=== PATIENT | female | born 1990 | race Caucasian/White ===

== ENCOUNTER 2021-12-19 08:44 | Outpatient (REF) | payer OTHER, SELFPAY ==
[2021-12-19 11:17] LABS: MANUAL DIFF FLAG NO
[2021-12-19 11:32] LABS: Basophils Percent Auto 0.6 % (0-2); Eosinophils Absolute Auto 0.5 X10*3/uL (0.0-0.4); Eosinophils Percent Auto 7.8 % (0-4); Hemoglobin 14.3 g/dl (12.0-16.0); Imm Gran Abs Auto 0.02 X10*3/uL (0.00-0.03); Imm Gran Pct Auto 0.3 % (0.0-0.4); Lymphocytes Absolute Auto 2.1 X10*3/uL (1.2-4.9); Lymphocytes Percent Auto 31.5 % (20-40); Mean Corpuscular Hemoglobin 31.4 pg (27.0-33.0); Mean Corpuscular Volume 92.1 fL (80.0-98.0); Mean Platelet Volume 11.1 fL (9.4-12.3); Monocytes Absolute Auto 0.2 X10*3/uL (0.1-1.2); Monocytes Percent Auto 3.4 % (2-11); Neutrophils Absolute Auto 3.7 x10*3/uL (2.0-8.3); Neutrophils Percent Auto 56.4 % (45-73); Platelet Count 302 X10*3/uL (160-400); Red Blood Count 4.56 X10*6/uL (4.20-5.50); Red Cell Distribution Width 12.4 % (11.0-16.0); White Blood Count 6.5 X10*3/uL (4.8-10.8)
[2021-12-19 12:17] LABS: Alanine Aminotransferase 10 U/L (0-31); Albumin Level 4.4 g/dL (3.5-5.0); Alkaline Phosphatase 53 U/L (39-117); Anion Gap 17 (12-20); Aspartate Amino Transferase 18 U/L (5-31); Bilirubin Total 0.7 mg/dL (0.0-1.0); Blood Urea Nitrogen 12 mg/dL (9-16); Calcium 9.3 mg/dL (8.4-10.2); Carbon Dioxide 19 mmol/L (22-29); Chloride 108 mmol/L (96-108); Cholesterol 147 mg/dL; Estimated Glomerular Filt Rate > 60; Glucose Fasting 82 mg/dL (60-99); HDL Cholesterol 40 mg/dL; LDL Cholesterol Calculated 95 mg/dl; Potassium 4.6 mmol/L (3.3-5.1); Sodium 139 mmol/L (135-145); Total Protein 7.2 g/dL (6.5-8.0); Triglycerides 60 mg/dL
[2021-12-19 12:34] LABS: TSH reflex Free T4 1.08 uIU/mL (0.32-4.0)
== END 2021-12-19 08:45 | disposition home or self-care (01) ==
LOC: HO.WFDLDS 08:44
PROVIDERS: Visit Provider Family Medicine
DX: Z00.00 Encounter for general adult medical examination without abnormal findings (principal)
CPT/HCPCS: 36415; 80053; 80061; 84443; 85025

== ENCOUNTER 2023-05-14 11:58 | Outpatient (AMB) | payer BC, SELFPAY ==
--- NOTE | 2023-05-14 12:05 | MHC.PC.OV ---
Vital Signs 05/14/23 12:09 Height 5 ft 3 in Weight 151 lb BMI 26.7 BP 110/60 Blood Pressure Location Rt brachial Position Sitting Respiration 13 Pulse 88 Pulse Source Pulse Oximeter Temp 98.2 F Temp Source Temporal Artery Scan Pulse Oximetry (%) 100 Oxygen Delivery Method Room Air Intake Visit Reasons: CPE Intake Note: Patient is here for her yearly physical. Patient reports she has been having difficulties with her breathing related to asthma. Patient needs refills on her medications. Patient reports she is about 8-9 weeks. 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 Accompanied by: Self / Same As Patient Allergies amoxicillin Allergy (Verified 05/14/23 12:24) breathing difficulty, rash Medication List - Last Reconciled 05/14/23 by Sydnee Varela, [facility]- albuterol sulfate 0.63 mg inhalation Q4-6H PRN albuterol sulfate 90 mcg/actuation 2 puffs inhalation Q4-6H PRN fluticasone propion-salmeterol 100-50 mcg/dose (Advair Diskus) 1 inh inhalation BID Tobacco use date assessed: 05/14/23 Dental Screening Dental Screen Date: 05/14/23 Did you have a dental visit in the last 12 months?: No Did you have a dental problem in the last 6 months where you did not have access to dental care?: No Was dental information given to patient?: Patient has dentist HPI HPI Comments History of Present Illness Details 32-year-old female with anxiety disorder, moderate persistent asthma, seasonal allergies, insomnia, ectopic , liver hemangioma surgery: L 10/2021 L fallopian removed s/p ectopic preg. Family hx: Mom and Dad alive and well. Siblings older bro, younger sister alive and well. 3 children alive well. MGM - alive KULWINDER, MD MGF - stroke in the setting of etoh,age 50 PGM - alive, DM, Arthritis, Asthma PGF - alive and well unknown medical hx Great grandmother Maternal - breast cancer. No sig family hx in first degree relatives. Social: works at [employer]. 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 Last labs 11/2021 Here today for a CPE Quit Vaping. Asthma - uncontrolled. Waking from sleep. Will get flu shot today. Several ED visits for her asthma. Not active w/ Pulm. Interested. + seasonal allergies; using Zyrtec. Currently . Anxiety - not active w/ psych. Stopped taking meds as it was not working. Called for referral for counseling; wait list > 1 year and other didnt take insurance. Incidental finding of liver hemangioma on ED imaging. No f/u on hemangioma to date. Would like to defer until after current . [facility] Medical History (Updated 05/14/23 @ 15:56 by Sydnee Varela, [facility]) Encounter for prophylactic removal of fallopian tube Asthma Family History Mother No problems noted. Father No problems noted. Maternal Grandfather Substance abuse Social History (Updated 05/14/23 @ 12:20 by Jolene Cerda [facility]) Household Members: Children Household Members Other:: 3 children Housing: House (2 family house) Are you a primary care management specialist to a significant other at home: No Do you presently have visiting nurse or other home services: No 75 years or older and lives alone: No Alcohol intake: former Year quit: 2023 Comment: Patient is Patient Tobacco Use Status: Never used Tobacco (vaping) e-Cigarette/Vaping Use: Former Use (about 2 years, quit 2 months ago) Date or number of years quit: February 2023 service: No Current occupational status: employed Current occupation: [employer] Current occupational exposures/hazards: No Sexual orientation: Straight/Heterosexual Gender identity: Female Cognitive needs: No Hearing needs: No Vision needs: No Questionnaire PHQ-9 Over the last 2 weeks, how often have you been bothered by any of the following problems? 1. Little interest or pleasure in doing things: not at all 2. Feeling down, depressed, or hopeless: not at all 3. Trouble falling or staying asleep, or sleeping too much: not at all 4. Feeling tired or having little energy: not at all 5. Poor appetite or overeating: not at all 6. Feeling bad about yourself - or that you are a failure or have let yourself or your family down: not at all 7. Trouble concentrating on things, such as reading the newspaper or watching television: not at all 8. Moving or speaking so slowly that other people could have noticed. Or the opposite - being so fidgety or restless that you have been moving around a lot more than usual: not at all 9. Thoughts that you would be better off or of hurting yourself in some way: not at all Total score: 0 Depression Screening Interpretation: Negative Depression Screening Done: Yes [id number] - PHQ-9 Billing: Yes Source: Developed by Drs. Yevgeniy Badillo, Yuki Cruz, Dejuan Bustamante and colleagues, with an educational joel from [employer]. Thrive Questionnaire Date Thrive assessed: 05/14/23 I am a: Patient What is your living situation today?: I have a steady place to live Within the past 12 months, did the food you bought not last and you didn't have the money to get more?: Never true Within the past 12 months, did you worry whether your food would run out before you got money to buy more?: Never true Do you have trouble paying for medicines?: No Do you have trouble getting transportation to medical appointments?: No Do you have trouble paying your heating and electricity bill?: No Do you have trouble taking care of your child, family member or friend?: No Do you have trouble with day-to-day activities such as bathing, preparing meals, shopping, managing finances, etc.?: No Are you currently unemployed and looking for a job?: No Are you interested in more education?: No Please select the resources that you would like help with: None Currently or been in a relationship where the following occur: no concerns reported THRIVE Score: 0 AUDIT C Alcohol Use Questionnaire (AUDIT-C) 1. How often do you have a drink containing alcohol?: Never 3. How often do you have six or more drinks on one occasion?: Never Total Score: 0 Score Reviewed/Action Taken: Yes KULWINDER-7 AMB Questionnaire KULWINDER-7 Date KULWINDER - 7 assessed: 05/14/23 Feeling nervous, anxious, or on edge: 0 = Not at all Not being able to stop or control worryin = Not at all Worrying too much about different things: 0 = Not at all Trouble relaxin = Not at all Being so restless that it is hard to sit still: 0 = Not at all Becoming easily annoyed or irritable: 0 = Not at all Feeling afraid as if something awful might happen: 0 = Not at all Total KULWINDER-7 score (0-4 normal; 5-9 mild; 10-14 moderate; 15-21 severe): 0 Source: Developed by Drs. Yevgeniy Badillo, Yuki Cruz, Dejuan Bustamante and colleagues, with an educational joel from [employer]. KULWINDER-7 Assessment Billing KULWINDER-7 Assessment Tool: KULWINDER-7 Assessment 48422 ACT Questionnaire In the past 4 weeks, how much of the time did your asthma keep you from getting as much done at work, school or at home?: Some of the time During the past 4 weeks, how often have you had shortness of breath?: More than once a day During the past 4 weeks, how often did your asthma symptoms wake you up at night or earlier than usual in the morning?: Once or twice per week During the past 4 weeks, how often have you had to use your rescue inhaler or nebulizer medication?: More than 3 times per day How would you rate your asthma control during the past 4 weeks?: Somewhat controlled ACT Interpretation: Positive Score: 12 Review of Systems Const Details: Constitutional: Denies fever. Skin: Denies rash. Eye: Denies eye pain. ENMT: Denies sore throat Gastrointestinal: Denies nausea, vomiting or abdominal pain. Cardiovascular: Denies chest pain and syncope. Genitourinary: Denies dysuria. Musculoskeletal: Denies back pain and extremity pain. Neurologic: Denies headaches, confusion, and weakness. Psychiatric: Denies suicidal thoughts and substance abuse. Allergy/ Immunologic: Denies impaired immunity. Physical exam (Primary Care) Vital Signs: Last Vital Signs Temp 98.2 F 05/14/23 12:09 Pulse 88 05/14/23 12:09 Resp 13 05/14/23 12:09 BP 110/60 05/14/23 12:09 Pulse Ox 100 05/14/23 12:09 Oxygen Delivery Method Room Air 05/14/23 12:09 BMI result Body Mass Index 26.7 Tobacco/Smoking Status: Tobacco use Status Tobacco use date assessed 05/14/23 05/14/23 12:17 Patient Tobacco Use Status Never used Tobacco (vaping) 05/14/23 12:20 Tobacco use type 05/14/23 12:17 e-Cigarette/Vaping Use Former Use (about 2 years, 05/14/23 12:20 quit 2 months ago) PHQ-9: PHQ-9 Score PHQ-9: Total score 0 05/14/23 12:50 Depression Screening Interpretation: Negative Thrive Assessment: Date of Thrive Assessment Date Thrive assessed 05/14/23 05/14/23 12:23 Currently or been in a relationship where the following occur: no concerns reported Const Other: General: Well developed, well nourished, in no acute distress. Appears stated age. Head: Normocephalic, atraumatic. Eyes: Pupils are equal, round and reactive to light and accommodation. Conjunctivae are clear. Vision grossly normal. Ears: TMs clear AU, EACS WNL Nose: Patent, without discharge. Positive congestion, turbinates pale Mouth: There are no ulcers or lesions noted. No inflammation, no post nasal drip, no plaques nor exudates. Neck: Supple, no adenopathy or thyromegaly. Lungs: Clear to auscultation bilaterally. No rales, rhonchi or wheeze noted. Diminished throughout. Heart: Regular rate and rhythm. No murmurs, click, rubs or gallops are noted. Abdomen: Bowel sounds present in all quadrants. The abdomen is soft, nontender, with no masses or organomegaly noted. No hernias are noted. Musculoskeletal: Joints are nontender, without swelling, redness, or effusions. Range of motion is observed to be normal. Pulses: Peripheral pulses are equal and palpable bilaterally. Extremities: No clubbing, cyanosis nor edema is noted. Neurologic: Gait and station normal. Cranial Nerves 2-12 intact. Motor strength grossly symmetrical and intact. No sensory loss. Balance normal. Skin: No rashes, ulcers, or lesions noted. Turgor is good. Skin color is good. Hair and nails are without abnormalities. Psych: Normal eye contact, affect and mood appropriate, and normal interactions. Patient is alert and appropriate to context. Office Procedures Flu Questionnaire Does the patient have a severe egg allergy?: No Does the patient have severe life threatening allergies?: No Does the patient have a fever or illness today?: No Has the patient ever had Guillain-Ch[place] Syndrome?: No Has the patient ever had any past reaction to a flu shot?: No Immunizations flu vacc [id number] 6mos up(PF) 60 mcg(15 mcgx4)/0.5 mL IM syringe Performing Provider: ROBIN Genao Performing Location: [facility] Administered by: Jolene Cerda CMA on 05/14/23 12:50 Dose Route Admin Location Dispensed Lot Number Expiration Date NDC [place] 0.5 mL IM Left Deltoid 0.5 mL [id number] 08/24/23 28423-221-38 [facility] VIS Given Date VIS Provided VIS Publication Date 05/14/23 Single Vaccine 20 Eligibility Eligibility Date Funding Source Not VFC Eligible 05/14/23 Private Assessment and Plan Assessment & Plan (1) Adult general medical exam: Code(s): Z00.00 - Encounter for general adult medical examination without abnormal findings (2) Asthma: Comment: refer to Pulm for management Currently on EDDA PRN Neb and HFA. Advair 100/50mcg 1 puff BID. Will have her take 2 puffs BID until she sees Pulm, which i have requested Urgently given . Flu shot today. Code(s): J45.909 - Unspecified asthma, uncomplicated Qualifiers: Asthma complication type: uncomplicated Asthma persistence: persistent Asthma severity: moderate Qualified Code(s): J45.40 - Moderate persistent asthma, uncomplicated (3) Liver hemangioma: Comment: incidental finding on ED imaging wishes to defer further workup until after . Code(s): D18.03 - Hemangioma of intra-abdominal structures (4) KULWINDER (generalized anxiety disorder): Comment: was on buproprion in the past; feels she is managing w/o meds. No counselor. Declined referral. Code(s): F41.1 - Generalized anxiety disorder Orders: Orders Influenza [id number] Immunization Today Z23 - Encounter for immunization Referrals Pulmonology Referral J45.909 - Unspecified asthma, uncomplicated Medications: New albuterol sulfate 0.63 mg (3 mL) inhalation Q4-6H PRN 90 mL 0RF shortness of breath or wheezing J45.909 - Unspecified asthma, uncomplicated fluticasone propion-salmeterol 100-50 mcg/dose (Advair Diskus) 2 inhalations inhalation BID 60 ea 0RF 30 days J45.909 - Unspecified asthma, uncomplicated Refilled albuterol sulfate 90 mcg/actuation 2 puffs inhalation Q4-6H PRN 8.5 ea 4RF for wheezing J45.909 - Unspecified asthma, uncomplicated Patient Instructions: Liver hemangioma - noted on imaging at [facility], incidental finding. Ask CREATIVE [facility]S THERAPIST about looking at this during routine imaging if they are able Health screenings for women ages 18 to 39 You should visit your health care provider from time to time, even if you are healthy. The purpose of these visits is to: Screen for medical issues Assess your risk for future medical problems Encourage a healthy lifestyle Update vaccinations and other preventive care services Help you get to know your provider in case of an illness Information Even if you feel fine, you should still see your provider for regular checkups. These visits can help you avoid problems in the future. For example, the only way to find out if you have high blood pressure is to have it checked regularly. High blood sugar and high cholesterol levels also may not have any symptoms in the early stages. A simple blood test can check for these conditions. There are specific times when you should see your provider or receive specific health screenings. The [place] Preventive Services Task Force publishes a list of recommended screenings. Below are screening guidelines for women ages 18 to 39. BLOOD PRESSURE SCREENING Your blood pressure should be checked at least once every 3 to 5 years if: Your blood pressure is in the normal range (top number less than 120 mm Hg and bottom number less than 80 mm Hg) You don't have risk factors for high blood pressure Ask your provider if you need your blood pressure checked more often if: The top number is 120 to 129 mm Hg or the bottom number is 70 to 79 mm Hg You have diabetes, heart disease, kidney problems, are overweight, or have certain other health conditions You have a first-degree relative with high blood pressure You are Black You had high blood pressure during a If the top number is 130 mm Hg or greater or the bottom number is 80 mm Hg or greater, this is considered stage 1 hypertension. Schedule an appointment with your provider to learn how you can reduce your blood pressure. Watch for blood pressure screenings in your area. Ask your provider if you can stop in to have your blood pressure checked. BREAST CANCER SCREENING Experts do not agree about the benefits of breast self-exams in finding breast cancer or saving lives. Talk to your provider about what is best for you. A screening mammogram is not recommended for most women under age 40. Your provider may discuss and recommend mammograms, MRI scans, or ultrasounds if you have an increased risk for breast cancer, such as: A mother or sister who had breast cancer at a young age (most often starting screening earlier than the age the close relative was diagnosed) You carry a high-risk genetic marker CERVICAL CANCER SCREENING Cervical cancer screening should start at age 21 years unless your provider advises otherwise. After the first test: Women ages 21 through 29 should have a Pap test every 3 years. Exoprts do not agree on whether HPV testing is recommended for this age group. Women ages 30 through 65 should be screened with either a Pap test every 3 years or the HPV test every 5 years or both tests every 5 years (called cotesting ). Women who have been treated for precancer (cervical dysplasia) should continue to have Pap tests for 20 years after treatment or until age 65, whichever is longer. If you have had your uterus and cervix removed (total hysterectomy), and you have not been diagnosed with cervical cancer or precancer (high grade cervical neoplasia), you do not need cervical cancer screening. CHOLESTEROL SCREENING Cholesterol screening should begin at: Age 45 for women with no known risk factors for coronary heart disease Age 20 for women with known risk factors for coronary heart disease Repeat cholesterol screening should take place: Every 5 years for women with normal cholesterol levels More often if changes occur in lifestyle (including weight gain and diet) More often if you have diabetes, heart disease, kidney problems, or certain other conditions DIABETES SCREENING You should be screened for diabetes starting at age 35 and then repeated every 3 years if you have no risk factors for diabetes. Screening may need to start earlier and be repeated more often if you have other risk factors for diabetes, such as: You have a first degree relative with diabetes. You are overweight or have obesity. You have high blood pressure, prediabetes, or a history of heart disease. Screening for diabetes should be done if you are planning to become and you are overweight and have other risk factors such as high blood pressure. DENTAL EXAM Go to the dentist once or twice every year for an exam and cleaning. Your dentist will evaluate if you need more frequent visits. EYE EXAM Have an eye exam every 5 to 10 years before age 40. If you have vision problems, have an eye exam every 2 years or more often if recommended by your provider. You should have an eye exam that includes an examination of your retina (back of your eye) at least every year if you have diabetes. IMMUNIZATIONS Commonly needed vaccines include: Flu shot: get one every year. COVID-19 vaccine: ask your provider what is best for you. Tetanus-diphtheria and acellular pertussis (Tdap) vaccine: have one at or after age 19 as one of your tetanus-diphtheria vaccines if you did not receive it as an adolescent. Tetanus-diphtheria: have a booster (or Tdap) every 10 years. Varicella vaccine: receive 2 doses if you never had chickenpox or the varicella vaccine. Hepatitis B vaccine: receive 2, 3, or 4 doses, depending on your exact circumstances. Measles, mumps, and rubella (MMR) vaccine: receive 1 to 2 doses if you are not already immune to MMR. Your provider can tell you if you are immune. Ask your provider about the human papillomavirus (HPV) vaccine if: You have not received the HPV vaccine in the past You have not completed the full vaccine series (you should catch up on this shot) Ask your provider if you should receive other immunizations if you have certain health problems that increase your risk for some diseases such as pneumonia. INFECTIOUS DISEASE SCREENING Women who are sexually active should be screened for chlamydia and gonorrhea up until age 25. Women 25 years and older should be screened for chlamydia and gonorrhea if at high risk. Screening for hepatitis C: All adults ages 18 to 79 should get a one-time test for hepatitis C. people should be screened at every . Screening for human immunodeficiency virus (HIV): All people ages 15 to 65 should get a one-time test for HIV. Depending on your lifestyle and medical history, you may also need to be screened for infections such as syphilis and HIV, as well as other infections. PHYSICAL EXAM All adults should visit their provider from time to time, even if they are healthy. The purpose of these visits is to: Screen for disease Assess your risk of future medical problems Encourage a healthy lifestyle Update your vaccinations and other preventive care services Maintain a relationship with a provider in case of an illness Your height, weight, and BMI should be checked at every exam. During your exam, your provider may ask you about: Depression and anxiety Diet and exercise Alcohol and tobacco use Safety issues, such as using seat belts, smoke detectors, and intimate partner violence Your medicines and risk for interactions SKIN SELF-EXAM Your provider may check your skin for signs of skin cancer, especially if you're at high risk, such as if you: Have had skin cancer before Have close relatives with skin cancer Have a weakened immune system OTHER SCREENING Talk with your provider about colon cancer screening if you have a strong family history of colon cancer or polyps, or if you have had inflammatory bowel disease or polyps yourself. Routine bone density screening of women under 40 is not recommended. RTO IN 1 YEAR FOR CPE, SOONER PRN Coding Level of Care Code Est Pt Prev Care 18-39y(96513) Diagnoses Adult general medical exam Z00.00 Moderate persistent asthma without complication J45.40 Asthma complication type: uncomplicated Asthma persistence: persistent Asthma severity: moderate Liver hemangioma D18.03 KULWINDER (generalized anxiety disorder) F41.1 Additional Codes KULWINDER-7 Assessment Billing - KULWINDER-7 Assessment Tool: KULWINDER-7 Assessment [id number] ([id number])
[2023-05-14 12:09] VITALS: BP 110/60; PULSE 88; RESP 13; TEMP 36.8; O2SAT 100; BMI 26.7
== END 2023-05-14 12:45 | disposition home or self-care (01) ==
PROVIDERS: PCP Family Medicine; Visit Provider Nurse Practitioner Family
DX: Z00.00 Encounter for general adult medical examination without abnormal findings (principal); J45.40 Moderate persistent asthma, uncomplicated; D18.03 Hemangioma of intra-abdominal structures; F41.1 Generalized anxiety disorder; Z23 Encounter for immunization
CPT/HCPCS: 90471; 90686; 99395

== ENCOUNTER 2023-05-21 15:11 | Outpatient (REF) | payer OTHER, SELFPAY | END 2023-05-21 15:12 | disposition home or self-care (01) | LOC: CF 15:11 | DX: Z13.89 Encounter for screening for other disorder (principal) ==

== ENCOUNTER 2023-05-23 14:09 | Outpatient (AMB) | payer BC, SELFPAY ==
--- NOTE | 2023-05-23 13:47 | A.OFFVIS_ITS ---
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 Required: No Biotechnologist: Biotechnologist offered & declined Accompanied by: Self / Same As Patient Allergies amoxicillin Allergy (Verified 05/23/23 14:19) breathing difficulty, rash Medication List - Last Reconciled 05/23/23 by Kanwal Wilkerson LPN albuterol sulfate 0.63 mg (3 mL) inhalation Q4-6H PRN albuterol sulfate 90 mcg/actuation 2 puffs inhalation Q4-6H PRN fluticasone propion-salmeterol 100-50 mcg/dose (Advair Diskus) 2 inhalations inhalation BID 30 days HPI Asthma HPI Details Nely is a pleasant 32 year old female, former tobacco smoker with less than 10pyh and vaped x 2 years, with underlying asthma since childhood. She was referred by PCP for pulmonary evaluation for worsening asthma control. Of note, patient is in the first trimester of . Her PCP recently increased her Advair from 1 inhalation BID, to 2 inhalations BID as she reported using her nebulizer 1-2 times per day for dyspnea, chest tightness, wheezing and dry cough. Since increasing advair she reports using nebulizer up to twice a week, with significant improvement in symptoms. She reports seasonal allergies using daily zyrtec with good effect. No recent allergy testing. She does have cats at home. She reports multiple first degree family members with asthma. She denies any occupational exposures. She reports last year being hospitalized multiple times for asthma, never requiring intubation. [facility] Medical History (Updated 05/23/23 @ 14:49 by Fior Ford NP) Encounter for prophylactic removal of fallopian tube Asthma Family History Mother No problems noted. Father No problems noted. Maternal Grandfather Substance abuse Social History (Updated 05/23/23 @ 14:20 by Kanwal Wilkerson LPN) Household Members: Children Household Members Other:: 3 children Housing: House (2 family house) Are you a primary urgent care nurse practitioner to a significant other at home: No Do you presently have visiting nurse or other home services: No 75 years or older and lives alone: No Alcohol intake: former Year quit: 2023 Comment: Patient is Patient Tobacco Use Status: Former Tobacco user (vaping) Tobacco use type: Cigarette Cigarette Packs Per Day: 0.5 Years Smoked: 10 e-Cigarette/Vaping Use: Former Use (about 2 years, quit 2 months ago) Date or number of years quit: February 2023 service: No Current occupational status: employed Current occupation: [employer] Current occupational exposures/hazards: No Sexual orientation: Straight/Heterosexual Gender identity: Female Cognitive needs: No Hearing needs: No Vision needs: No Review of Systems Const Denies chills, Denies excessive sweating, Denies fever(s), Denies headache(s) and Denies night sweats Eyes Denies dry eyes, Denies irritation and Denies itchy eyes ENT Reports Normal hearing present, Denies headache(s), Denies nasal congestion, De nies nasal discharge, Denies post nasal drip and Denies sore throat Card Denies chest pain, Denies chest pain at rest, Denies chest pain with activity, Denies claudication, Denies leg edema, Denies dyspnea, Denies dyspnea on exertion, Denies orthopnea and Denies paroxysmal nocturnal dyspnea Resp Denies chest congestion, Denies cough, Denies excessive phlegm production, Denies pain on inspiration, Denies pain with cough, Denies dyspnea, Denies dyspnea on exertion, Denies stridor and Denies wheezing Musc Denies myalgias Neuro Reports Normal hearing present and Denies headache(s) Endo Denies excessive sweating Harman/Lymph Denies lymphadenopathy Aller/Immun Denies itchy eyes, Denies seasonal rhinorrhea and Denies wheezing Physical Exam Vital Signs: Last Vital Signs Pulse 72 05/23/23 14:15 BP 112/64 05/23/23 14:15 Pulse Ox 98 05/23/23 14:15 Oxygen Delivery Method Room Air 05/23/23 14:15 BMI result Body Mass Index 27.5 Const General: cooperative, healthy appearing, comfortable, no acute distress, well developed and alert Orientation/consciousness: patient oriented x3 Limitations: no limitations HEENT Head: Yes normal to inspection, Yes normocephalic and Yes atraumatic Ears: hearing grossly normal bilaterally and external ears normal Eyes General: appearance normal, both eyes and all related structures Eyelids: Yes eyelids normal Sclerae: sclerae normal EOM: EOMs intact bilaterally Neck Neck: Yes normal visual inspection and Yes no lymphadenopathy Lymphatic: no lymphadenopathy noted Chest Chest palpation & inspection: normal inspection of the chest Resp Effort & Inspection: normal respiratory effort, able to speak in complete sentences, no audible wheezes, no cough, no stridor, not tachypneic, no tripod positioning and no use of accessory muscles Auscultation: clear to auscultation bilaterally Cardio Jugular venous distension: no JVD Rate: regular rate Rhythm: regular rhythm Skin Other: warm, dry General skin exam: no rashes or lesions noted Neuro General: patient oriented x3 Cranial nerves: Yes Normal hearing present Cognition (Neuro): normal cognition Gait exam (Neuro): Normal gait present Extrem General: Yes normal to inspection, Yes capillary refill normal, Yes no clubbing, cyanosis or edema and Yes no pedal edema Psych Appearance: grossly normal and well kempt Speech and movement: Normal speech and movement present and Clear speech present Affect: normal affect Attitude: cooperative Thought process: Normal thought process present Thought content: Normal thought content present Insight: Good insight present (Psych) Judgement: Good judgement present (Psych) Assessment & Plan Assessment & Plan (1) Asthma: Code(s): J45.909 - Unspecified asthma, uncomplicated Qualifiers: Asthma complication type: uncomplicated Asthma persistence: persistent Asthma severity: moderate Qualified Code(s): J45.40 - Moderate persistent asthma, uncomplicated (2) Environmental allergies: Code(s): Z91.09 - Other allergy status, other than to drugs and biological substances Plan Nely's symptoms are likely related to underlying asthma with allergic component. Will send for PFT and RAST to thoroughly evaluate. She would like to get RAST performed through [facility], [facility] form given. Patient reports significant improvement since increasing Advair from 1 inhalation b.i.d. to 2 inhalations b.i.d. Advised to continue using. She is aware to contact the office for worsening symptom control. All questions were answered and patient is in agreement of plan. Will follow-up to review results. Orders: Orders Immunoglobulin E Today Z91.09 - Other allergy status, other than to drugs and biological substances PFT pulmonary function test Today J45.909 - Unspecified asthma, uncomplicated Complete Blood Count Auto Diff Today J45.909 - Unspecified asthma, uncomplicated Medications: Refilled fluticasone propion-salmeterol 100-50 mcg/dose (Advair Diskus) 2 inhalations inhalation BID 60 ea 6RF 30 days J45.909 - Unspecified asthma, uncomplicated Coding Level of Care Code New Pt Level 3 (61932) Diagnoses Moderate persistent asthma without complication J45.40 Asthma complication type: uncomplicated Asthma persistence: persistent Asthma severity: moderate Environmental allergies Z91.09
[2023-05-23 14:15] VITALS: BP 112/64; PULSE 72; O2SAT 98; BMI 27.5
== END 2023-05-23 14:40 | disposition home or self-care (01) ==
PROVIDERS: PCP Family Medicine; Visit Provider Nurse Practitioner Family
DX: J45.40 Moderate persistent asthma, uncomplicated (principal); Z91.09 Other allergy status, other than to drugs and biological substances
CPT/HCPCS: 99203

== ENCOUNTER → 2023-05-23 14:09 | Outpatient (BNVA) | payer BC, SELFPAY | PROVIDERS: PCP Family Medicine; Visit Provider Nurse Practitioner Family ==

== ENCOUNTER 2024-05-17 11:53 | Outpatient (AMB) | payer BC, SELFPAY ==
--- NOTE | 2024-05-17 12:02 | MHC.PC.OV ---
Vital Signs 05/17/24 12:05 Height 5 ft 3 in Weight 183 lb 6 oz BMI 32.5 BP 122/66 Blood Pressure Location Lt brachial Position Sitting Respiration 12 Pulse 94 Pulse Source Pulse Oximeter Temp 97.4 F Temp Source Oral Pulse Oximetry (%) 98 Oxygen Delivery Method Room Air Intake Visit Reasons: CPE Intake Note: CPE Manager Oracle Required: No Allergies amoxicillin Allergy (Verified 05/17/24 12:25) breathing difficulty, rash Medication List - Last Reconciled 05/17/24 by Sydnee Varela [facility]- albuterol sulfate 0.63 mg (3 mL) inhalation Q4-6H PRN albuterol sulfate 90 mcg/actuation 2 puffs inhalation Q4-6H PRN fluticasone propion-salmeterol 100-50 mcg/dose (Advair Diskus) 2 inhalations inhalation BID 30 days Tobacco use date assessed: 05/17/24 Dental Screening Dental Screen Date: 05/17/24 Did you have a dental visit in the last 12 months?: Yes Did you have a dental problem in the last 6 months where you did not have access to dental care?: No Was dental information given to patient?: Patient has dentist HPI HPI Comments History of Present Illness Details 33-year-old female with anxiety disorder, moderate persistent asthma, seasonal allergies, insomnia, ectopic , liver hemangioma surgery: L 10/2021 L fallopian removed s/p ectopic preg. Family hx: Mom and Dad alive and well. Siblings older bro, younger sister alive and well. 4 children alive well. MGM - alive [place], [place] MGF - stroke in the setting of etoh,age 50 PGM - alive, DM, Arthritis, Asthma PGF - alive and well unknown medical hx Great grandmother Maternal - breast cancer. No sig family hx in first degree relatives. Social: works at [employer]. Specialists Psychiatric [employer] - [facility] Pul Health maintenance Pap reports UTD, has IUD 5 years (2023) Flu admin today, Tdap 2023 Eye - no issues, does not wear corrective lenses Dentist - routine q 6 months Skin - no issues Here today for a CPE Delivered baby no complications; no gestation dm; not breast feeding [place] [facility] [place] - check PFT and Rast - no f.u appt scheduled 06/2023 [facility] ED visit asthma KUL[place]ER - overwhelmed; worse since . was on wellbutrin in past; Not currently on meds; is willing to do PRN med. Start hydrozyxine Asthma - uncontrolled even w/ increase in Advair. TAking claritin; was using zyrtec but found ineffective. [place] [facility] [place]. did not get testing done d/t . interested in fu at this time. New referral placed Incidental finding of liver hemangioma on ED imaging. No f/u on hemangioma to date. Interested in fu. MRI ordered. Plan labs today pulm referral increase advair from 200 to 500mcg 1 puff bid, add singulair. cont claritin. flu shot MRA of abd/liver to eval hemangioma My office to arrange for fu once MRI results are in FU MRI, asthma and anxiety. Otherwise RTO 1 year CPE [facility] Medical History (Updated 05/17/24 @ 14:52 by Sydnee Varela, [facility]) Asthma Encounter for prophylactic removal of fallopian tube Surgical History (Updated 05/17/24 @ 12:03 by Lana Oseguera MA) No pertinent past surgical history Family History Mother No problems noted. Father No problems noted. Maternal Grandfather Substance abuse Social History Household Members: Children Household Members Other:: 3 children Housing: House (2 family house) Are you a primary intensive care medicine specialist to a significant other at home: No Do you presently have visiting nurse or other home services: No 75 years or older and lives alone: No Alcohol intake: former Year quit: 2023 Comment: Patient is Patient Tobacco Use Status: Former Tobacco user (vaping) Tobacco use type: Cigarette Cigarette Packs Per Day: 0.5 Years Smoked: 10 e-Cigarette/Vaping Use: Former Use (about 2 years, quit 2 months ago) Date or number of years quit: February 2023 service: No Current occupational status: employed Current occupation: [employer] Current occupational exposures/hazards: No Sexual orientation: Straight/Heterosexual Gender identity: Female Cognitive needs: No Hearing needs: No Vision needs: No Questionnaire PHQ-9 Over the last 2 weeks, how often have you been bothered by any of the following problems? 1. Little interest or pleasure in doing things: not at all 2. Feeling down, depressed, or hopeless: not at all 3. Trouble falling or staying asleep, or sleeping too much: not at all 4. Feeling tired or having little energy: several days 5. Poor appetite or overeating: not at all 6. Feeling bad about yourself - or that you are a failure or have let yourself or your family down: not at all 7. Trouble concentrating on things, such as reading the newspaper or watching television: several days 8. Moving or speaking so slowly that other people could have noticed. Or the opposite - being so fidgety or restless that you have been moving around a lot more than usual: several days 9. Thoughts that you would be better off or of hurting yourself in some way: not at all Total score: 3 Depression Screening Interpretation: Negative Depression Screening Done: Yes 81914 - PHQ-9 Billing: Yes Source: Developed by Drs. Yevgeniy Badillo, Yuki Cruz, Dejuan Bustamante and colleagues, with an educational joel from [employer]. Thrive Questionnaire Date Thrive assessed: 05/17/24 I am a: Patient What is your living situation today?: I have a steady place to live Within the past 12 months, did the food you bought not last and you didn't have the money to get more?: Never true Within the past 12 months, did you worry whether your food would run out before you got money to buy more?: Never true Do you have trouble paying for medicines?: No Do you have trouble getting transportation to medical appointments?: No Do you have trouble paying your heating and electricity bill?: No Do you have trouble taking care of your child, family member or friend?: No Do you have trouble with day-to-day activities such as bathing, preparing meals, shopping, managing finances, etc.?: No Are you currently unemployed and looking for a job?: No Are you interested in more education?: Yes Please select the resources that you would like help with: None Currently or been in a relationship where the following occur: No concerns reported THRIVE Score: 0 AUDIT C Alcohol Use Questionnaire (AUDIT-C) 1. How often do you have a drink containing alcohol?: Monthly or less 2. How many drinks containing alcohol do you have on a typical day when you are drinking?: 1 or 2 3. How often do you have six or more drinks on one occasion?: Never Total Score: 1 Score Reviewed/Action Taken: Yes KULWINDER-7 AMB Questionnaire KULWINDER-7 Date KULWINDER - 7 assessed: 05/17/24 Feeling nervous, anxious, or on edge: 1 = Several days Not being able to stop or control worryin = Not at all Worrying too much about different things: 1 = Several days Trouble relaxin = Not at all Being so restless that it is hard to sit still: 0 = Not at all Becoming easily annoyed or irritable: 1 = Several days Feeling afraid as if something awful might happen: 0 = Not at all Total KULWINDER-7 score (0-4 normal; 5-9 mild; 10-14 moderate; 15-21 severe): 3 Source: Developed by Drs. Yevgeniy Badillo, Yuki Cruz, Dejuan Bustamante and colleagues, with an educational joel from [employer]. KULWINDER-7 Assessment Billing KULWINDER-7 Assessment Tool: KULWINDER-7 Assessment 29123 ACT Questionnaire In the past 4 weeks, how much of the time did your asthma keep you from getting as much done at work, school or at home?: A little of the time During the past 4 weeks, how often have you had shortness of breath?: 1-2 times a week During the past 4 weeks, how often did your asthma symptoms wake you up at night or earlier than usual in the morning?: Once a week During the past 4 weeks, how often have you had to use your rescue inhaler or nebulizer medication?: 2-3 times a week How would you rate your asthma control during the past 4 weeks?: Somewhat controlled ACT Interpretation: Positive ACT Branch: Follow up visit scheduled Score: 17 Physical exam (Primary Care) Vital Signs: Last Vital Signs Temp 97.4 F 05/17/24 12:05 Pulse 94 05/17/24 12:05 Resp 12 05/17/24 12:05 BP 122/66 05/17/24 12:05 Pulse Ox 98 05/17/24 12:05 Oxygen Delivery Method Room Air 05/17/24 12:05 BMI result Body Mass Index 32.5 BMI Assessment/Plan discussion: High BMI High, discussed plan: lifestyle Tobacco/Smoking Status: Tobacco use Status Tobacco use date assessed 05/17/24 05/17/24 12:07 Patient Tobacco Use Status Former Tobacco user (vaping) 05/17/24 12:07 Tobacco use type Cigarette 05/17/24 12:07 e-Cigarette/Vaping Use Former Use (about 2 years, 05/17/24 12:07 quit 2 months ago) PHQ-9: PHQ-9 Score PHQ-9: Total score 3 05/17/24 12:57 Depression Screening Interpretation: Negative Thrive Assessment: Date of Thrive Assessment Date Thrive assessed 05/17/24 05/17/24 12:07 Currently or been in a relationship where the following occur: No concerns reported Const Other: General: Well developed, well nourished, in no acute distress. Appears stated age. Head: Normocephalic, atraumatic. Eyes: Pupils are equal, round and reactive to light and accommodation. Conjunctivae are clear. Vision grossly normal. Ears: TMs clear AU, EACS WNL Nose: Patent, without discharge. Mouth: There are no ulcers or lesions noted. No inflammation, no post nasal drip, no plaques nor exudates. Neck: Supple, no adenopathy or thyromegaly. Lungs: Clear to auscultation bilaterally. No rales, rhonchi or wheeze noted. Heart: Regular rate and rhythm. No murmurs, click, rubs or gallops are noted. Abdomen: Bowel sounds present in all quadrants. The abdomen is soft, nontender, with no masses or organomegaly noted. No hernias are noted. Musculoskeletal: Joints are nontender, without swelling, redness, or effusions. Range of motion is observed to be normal. Pulses: Peripheral pulses are equal and palpable bilaterally. Extremities: No clubbing, cyanosis nor edema is noted. Neurologic: Gait and station normal. Cranial Nerves 2-12 intact. Motor strength grossly symmetrical and intact. No sensory loss. Balance normal. Skin: No rashes, ulcers, or lesions noted. Turgor is good. Skin color is good. Hair and nails are without abnormalities. Psych: Normal eye contact, affect and mood appropriate, and normal interactions. Patient is alert and appropriate to context. Office Procedures Flu Questionnaire Does the patient have a severe egg allergy?: No Does the patient have severe life threatening allergies?: No Does the patient have a fever or illness today?: No Has the patient ever had Guillain-[place] Syndrome?: No Has the patient ever had any past reaction to a flu shot?: No Immunizations Fluarix Triv 5627-2802 (PF) 45 mcg (15 mcg x 3)/0.5 mL IM syringe Performing Provider: ROBIN Genao [place] [facility] Administered by: Judy Appiah RN on 05/17/24 12:58 Dose Route Admin Location Dispensed Lot Number Expiration Date NDC Sandblaster [employer] 0.5 mL IM Right Deltoid 0.5 mL [id number] 08/23/24 [id number] [employer] VIS Given Date VIS Provided VIS Publication Date 05/17/24 Single Vaccine 20 Eligibility Eligibility Date Funding Source Not [facility] Eligible 05/17/24 Private Coding Level of Care Code Est Pt Prev Care 18-39y(67166) Diagnoses Adult general medical exam Z00.00 Anxiety F41.9 Moderate persistent asthma without complication J45.40 Asthma complication type: uncomplicated Asthma persistence: persistent Asthma severity: moderate Environmental allergies Z91.09 [place] (generalized anxiety disorder) F41.1 Liver hemangioma D18.03 Influenza vaccination administered at current visit Z23 BMI 32.0-32.9,adult Z68.32 Obesity (BMI 30-39.9) E66.9 Additional Codes Asthma Control Questionnaire - ACT Interpretation: Positive ([id number]) KULWINDER-7 Assessment Billing - KULWINDER-7 Assessment Tool: KULWINDER-7 Assessment 27288 ([id number]) PHQ-9 - 56424 - PHQ-9 Billing: Yes ([id number]) Assessment & Plan Assessment & Plan (1) Adult general medical exam: Code(s): Z00.00 - Encounter for general adult medical examination without abnormal findings Category: Medical (2) Anxiety: Code(s): F41.9 - Anxiety disorder, unspecified Category: Medical (3) Asthma: Code(s): J45.909 - Unspecified asthma, uncomplicated Category: Medical Qualifiers: Asthma complication type: uncomplicated Asthma persistence: persistent Asthma severity: moderate Qualified Code(s): J45.40 - Moderate persistent asthma, uncomplicated (4) Environmental allergies: Code(s): Z91.09 - Other allergy status, other than to drugs and biological substances Category: Medical (5) [place] (generalized anxiety disorder): Comment: was on buproprion in the past; feels she is managing w/o meds. No counselor. Declined referral. Code(s): F41.1 - Generalized anxiety disorder Category: Medical (6) Liver hemangioma: Comment: incidental finding on ED imaging Code(s): D18.03 - Hemangioma of intra-abdominal structures Category: Medical (7) Influenza vaccination administered at current visit: Code(s): Z23 - Encounter for immunization Category: Medical (8) BMI 32.0-32.9,adult: Code(s): Z68.32 - Body mass index [BMI] 32.0-32.9, adult Category: Medical (9) Obesity (BMI 30-39.9): Code(s): E66.9 - Obesity, unspecified Category: Medical Plan . Orders: Orders MR angio abdomen wo/w con Today D18.03 - Hemangioma of intra-abdominal structures Hemoglobin A1c Today Z00.00 - Encounter for general adult medical examination without abnormal findings Influenza 2352-0899 Immunization Today Z23 - Encounter for immunization Complete Blood Count no Diff Today Z00.00 - Encounter for general adult medical examination without abnormal findings Comprehensive Met. Panel Today Z00.00 - Encounter for general adult medical examination without abnormal findings Lipid Panel Today Z00.00 - Encounter for general adult medical examination without abnormal findings Microalbumin, Random (w Creat) Today Z00.00 - Encounter for general adult medical examination without abnormal findings TSH reflex Free T4 Today Z00.00 - Encounter for general adult medical examination without abnormal findings Vitamin B12 and Folate Today Z00.00 - Encounter for general adult medical examination without abnormal findings Vitamin D 25-OH Total Today Z00.00 - Encounter for general adult medical examination without abnormal findings Referrals Pulmonology Referral J45.40 - Moderate persistent asthma, uncomplicated, Z91.09 - Other allergy status, other than to drugs and biological substances Medications: New hydroxyzine HCl 25 mg PO TID PRN 90 tabs 1RF anxiety montelukast (Singulair) 10 mg PO BEDTIME 90 tabs 2RF loratadine (Claritin) 10 mg PO DAILY fluticasone propion-salmeterol 500-50 mcg/dose (Advair Diskus) 1 inh inhalation BID 60 ea 11RF Discontinued fluticasone propion-salmeterol 100-50 mcg/dose (Advair Diskus) Discontinued Reason: Doctor's Order 2 inhalations inhalation BID 30 days 60 ea 6RF J45.909 - Unspecified asthma, uncomplicated Patient Instructions: Health screenings for women You should visit your health care provider from time to time, even if you are healthy. The purpose of these visits is to: Screen for medical issues Assess your risk for future medical problems Encourage a healthy lifestyle Update vaccinations and other preventive care services Help you get to know your provider in case of an illness Information Even if you feel fine, you should still see your provider for regular checkups. These visits can help you avoid problems in the future. For example, the only way to find out if you have high blood pressure is to have it checked regularly. High blood sugar and high cholesterol levels also may not have any symptoms in the early stages. A simple blood test can check for these conditions. There are specific times when you should see your provider or receive specific health screenings. The [place] Preventive Services Task Force publishes a list of recommended screenings. Below are screening guidelines for women ages 18 to 39. BLOOD PRESSURE SCREENING Your blood pressure should be checked at least once every 3 to 5 years if: Your blood pressure is in the normal range (top number less than 120 mm Hg and bottom number less than 80 mm Hg) You don't have risk factors for high blood pressure Ask your provider if you need your blood pressure checked more often if: The top number is 120 to 129 mm Hg or the bottom number is 70 to 79 mm Hg You have diabetes, heart disease, kidney problems, are overweight, or have certain other health conditions You have a first-degree relative with high blood pressure You are Black You had high blood pressure during a If the top number is 130 mm Hg or greater or the bottom number is 80 mm Hg or greater, this is considered stage 1 hypertension. Schedule an appointment with your provider to learn how you can reduce your blood pressure. Watch for blood pressure screenings in your area. Ask your provider if you can stop in to have your blood pressure checked. BREAST CANCER SCREENING Experts do not agree about the benefits of breast self-exams in finding breast cancer or saving lives. Talk to your provider about what is best for you. A screening mammogram is not recommended for most women under age 40. Your provider may discuss and recommend mammograms, MRI scans, or ultrasounds if you have an increased risk for breast cancer, such as: A mother or sister who had breast cancer at a young age (most often starting screening earlier than the age the close relative was diagnosed) You carry a high-risk genetic marker CERVICAL CANCER SCREENING Cervical cancer screening should start at age 21 years unless your provider advises otherwise. After the first test: Women ages 21 through 29 should have a Pap test every 3 years. Exoprts do not agree on whether HPV testing is recommended for this age group. Women ages 30 through 65 should be screened with either a Pap test every 3 years or the HPV test every 5 years or both tests every 5 years (called cotesting ). Women who have been treated for precancer (cervical dysplasia) should continue to have Pap tests for 20 years after treatment or until age 65, whichever is longer. If you have had your uterus and cervix removed (total hysterectomy), and you have not been diagnosed with cervical cancer or precancer (high grade cervical neoplasia), you do not need cervical cancer screening. CHOLESTEROL SCREENING Cholesterol screening should begin at: Age 45 for women with no known risk factors for coronary heart disease Age 20 for women with known risk factors for coronary heart disease Repeat cholesterol screening should take place: Every 5 years for women with normal cholesterol levels More often if changes occur in lifestyle (including weight gain and diet) More often if you have diabetes, heart disease, kidney problems, or certain other conditions DIABETES SCREENING You should be screened for diabetes starting at age 35 and then repeated every 3 years if you have no risk factors for diabetes. Screening may need to start earlier and be repeated more often if you have other risk factors for diabetes, such as: You have a first degree relative with diabetes. You are overweight or have obesity. You have high blood pressure, prediabetes, or a history of heart disease. Screening for diabetes should be done if you are planning to become and you are overweight and have other risk factors such as high blood pressure. DENTAL EXAM Go to the dentist once or twice every year for an exam and cleaning. Your dentist will evaluate if you need more frequent visits. EYE EXAM Have an eye exam every 5 to 10 years before age 40. If you have vision problems, have an eye exam every 2 years or more often if recommended by your provider. You should have an eye exam that includes an examination of your retina (back of your eye) at least every year if you have diabetes. IMMUNIZATIONS Commonly needed vaccines include: Flu shot: get one every year. COVID-19 vaccine: ask your provider what is best for you. Tetanus-diphtheria and acellular pertussis (Tdap) vaccine: have one at or after age 19 as one of your tetanus-diphtheria vaccines if you did not receive it as an adolescent. Tetanus-diphtheria: have a booster (or Tdap) every 10 years. Varicella vaccine: receive 2 doses if you never had chickenpox or the varicella vaccine. Hepatitis B vaccine: receive 2, 3, or 4 doses, depending on your exact circumstances. Measles, mumps, and rubella (MMR) vaccine: receive 1 to 2 doses if you are not already immune to MMR. Your provider can tell you if you are immune. Ask your provider about the human papillomavirus (HPV) vaccine if: You have not received the HPV vaccine in the past You have not completed the full vaccine series (you should catch up on this shot) Ask your provider if you should receive other immunizations if you have certain health problems that increase your risk for some diseases such as pneumonia. INFECTIOUS DISEASE SCREENING Women who are sexually active should be screened for chlamydia and gonorrhea up until age 25. Women 25 years and older should be screened for chlamydia and gonorrhea if at high risk. Screening for hepatitis C: All adults ages 18 to 79 should get a one-time test for hepatitis C. people should be screened at every . Screening for human immunodeficiency virus (HIV): All people ages 15 to 65 should get a one-time test for HIV. Depending on your lifestyle and medical history, you may also need to be screened for infections such as syphilis and HIV, as well as other infections. PHYSICAL EXAM All adults should visit their provider from time to time, even if they are healthy. The purpose of these visits is to: Screen for disease Assess your risk of future medical problems Encourage a healthy lifestyle Update your vaccinations and other preventive care services Maintain a relationship with a provider in case of an illness Your height, weight, and BMI should be checked at every exam. During your exam, your provider may ask you about: Depression and anxiety Diet and exercise Alcohol and tobacco use Safety issues, such as using seat belts, smoke detectors, and intimate partner violence Your medicines and risk for interactions SKIN SELF-EXAM Your provider may check your skin for signs of skin cancer, especially if you're at high risk, such as if you: Have had skin cancer before Have close relatives with skin cancer Have a weakened immune system OTHER SCREENING Talk with your provider about colon cancer screening if you have a strong family history of colon cancer or polyps, or if you have had inflammatory bowel disease or polyps yourself. Routine bone density screening of women under 40 is not recommended.
[2024-05-17 12:05] VITALS: BP 122/66; PULSE 94; RESP 12; TEMP 36.3; O2SAT 98; BMI 32.5
== END 2024-05-17 12:56 | disposition home or self-care (01) ==
LOC: HO.HMCFM 11:54
PROVIDERS: PCP Family Medicine; Visit Provider Nurse Practitioner Family
DX: Z00.00 Encounter for general adult medical examination without abnormal findings (principal); F41.9 Anxiety disorder, unspecified; J45.40 Moderate persistent asthma, uncomplicated; Z91.09 Other allergy status, other than to drugs and biological substances; F41.1 Generalized anxiety disorder; D18.03 Hemangioma of intra-abdominal structures; Z23 Encounter for immunization; Z68.32 Body mass index [BMI] 32.0-32.9, adult; E66.9 Obesity, unspecified

== ENCOUNTER → 2024-05-17 11:53 | Outpatient (BNVA) | payer BC, SELFPAY | PROVIDERS: PCP Family Medicine; Visit Provider Nurse Practitioner Family | DX: Z00.00 Encounter for general adult medical examination without abnormal findings (principal); Z23 Encounter for immunization; F41.9 Anxiety disorder, unspecified; J45.40 Moderate persistent asthma, uncomplicated; F41.1 Generalized anxiety disorder; D18.03 Hemangioma of intra-abdominal structures; E66.9 Obesity, unspecified; Z68.32 Body mass index [BMI] 32.0-32.9, adult; Z91.09 Other allergy status, other than to drugs and biological substances | CPT/HCPCS: 90471; 90656; 96127; 96160 ==